=== PATIENT | female | born 1990 | race Caucasian/White ===

== ENCOUNTER 2017-07-24 19:33 | Inpatient (IN) | payer MEDICAID ==
[~2017-07-24] VITALS: Ht 157.5 cm; Wt 70.5 kg
[~2017-07-24 19:33] MED LIST: CEPH-443 PO; IBUP-1542 PO; PREN1TAB62 PO
[2017-07-24 19:54] VITALS: BP 130/80; PULSE 86; RESP 18; Ht 157.5 cm; Wt 70.5 kg
[2017-07-24] MEDS ORDERED: AMPICILLIN 2 GM/NS (PMX) 100 ML IV ONE (21:30)
[2017-07-24] MEDS ORDERED: IBUPROFEN 600 MG TAB PO PRN (21:30)
[2017-07-24] MEDS ORDERED: BUTORPHANOL 2 MG INJ IV PRN ×2 (21:30)
[2017-07-24] MEDS ORDERED: LACTATED RINGER'S 1,000 ML IV PRN (21:30)
[2017-07-24] MEDS ORDERED: OXYTOCIN 30 UNITS/LR 500 ML IV SCH (21:30)
[2017-07-24] MEDS ORDERED: CARBOPROST 250 MCG INJ IM PRN (21:30)
[2017-07-24] MEDS ORDERED: HYDROCODONE/APAP (5/325) TAB PO PRN (21:30)
[2017-07-24] MEDS ORDERED: MISOPROSTOL 200 MCG TAB PR PRN (21:30)
[2017-07-24] MEDS ORDERED: LIDOCAINE 1% (MPF) 30 ML INJ INJ PRN (21:30)
[2017-07-24] MEDS ORDERED: OXYTOCIN 30 UNITS/LR 500 ML IV PRN (21:30)
[2017-07-24] MEDS ORDERED: METHYLERGONOVINE 0.2 MG INJ IM PRN (21:30)
--- NOTE | 2017-07-24 21:30 | HP ---
Date/Time of Note Date/Time of Note DATE: 07/24/17 TIME: 21:24 OB - History Hx of Present Free Text/Dictation 26 y.o at 38w6d came in c/o UC'[id number] with intact membrane VE 2.5/50%?-3 B.p initial 133/80 137/86 GBS not known 'no record available admitted for expectanta management. Chief Complaint: uc's Estimated Due Date: Aug 03, 2017 : 2 Para: 1 Spontaneous : 0 Therapeutic : 0 Care: Other Ultrasounds: Other Obstetrical Complications: None Medical Complications: None Past Family/Social History * Past Medical, Surgical, Family and Obstetric Histories reviewed from chart. Blood Type: Unknown Rubella: unknown RPR/VDRL: Unknown GBS Status: Unknown HBsAG: Unknown OB Admission Exam Vital Signs Vital Signs Vital Signs Date Time Temp Pulse Resp B/P Pulse Ox O2 Delivery O2 Flow Rate FiO2 07/24/17 19:54 98.1 86 18 130/80 99 Room Air Physical Exam HEENT: WNL Heart: Rhythm Normal Lungs: Clear, Equal Abdomen: WNL Extremities: Normal Reflexes: Normal Cervical Dilatation: 2cm Effacement: 50% Station: -3 Membranes: Intact Amniotic Fluid: Unevaluable Heart Rate: 130's Accelerations: Accelerations Present Decelerations: No Decelerations Varibility: Moderate Contractions on Admission: < 5 Minutes Apart Intensity: Mild OB Assessment/Plan Other Assessment: IUP 38w6d Plan: Expectant Management GUERO TRUONG MD Jul 24, 2017 21:30
--- NOTE | 2017-07-24 22:32 | RADRPT ---
PROCEDURE: Obstetrical ultrasound, limited. CLINICAL INDICATION: Pelvic pain. TECHNIQUE: Multiple sonographic images of the pelvis were obtained using transabdominal technique . Images were obtained with pastrana scale and color Doppler. The images were reviewed on a PACS works tation. COMPARISON: No prior studies are available for comparison. FINDINGS: There is a single living intrauterine gestation with the fetus in a vertex presentation. hear t tones of 160 beats per minute are identified. The placenta is anterior in location, grade 2. The re is no evidence of placenta previa or abruption. Measurements were made in order to determine age. The results are as follows: BPD =9.39 cm HC =33.56 cm AC =34.53 cm FL =7.49 cm. Estimated gestational age of approximately 38 weeks and 3 days. The estimated date of delivery is 08/04/2017. The EFW = 3478 +/- 522 grams. Estimated weight percentage equals 64.4%. IMPRESSION: Single viable intrauterine gestation of approximately 38 weeks and 3 days, with an ultrasound ABDOULAYE of 08/04/2017. .Newton Licea MD, MD Date Time Electronically viewed and signed by .Newton Licea MD, MD on 07/24/2017 22:32 .T/
[2017-07-24] MEDS: LACTATED RINGER'S 1,000 ML IV SCH (22:42)
--- NOTE | 2017-07-24 23:39 | TRIAGE ---
OB Triage Datetime Report Generated by CPN: 07/24/2017 23:39 Datetime: 07/24/2017 23:05 Time of Arrival: 07/24/2017 22:15 EGA: 38.4 Arrived By: Ambulatory Datetime: 07/24/2017 22:45 Assessment Type: Admission Assessment Vaginal Bleeding: None Maternal Assessment Level of Consciousness: Fully Conscious DTR's/Clonus: DTRs 2+; No Clonus Headache: Denies Blurred Vision: No Respiratory Effort: Unlabored; Regular Rhythm; Equal Expansion Breath Sounds, Left: Clear and Equal Breath Sounds, Right: Clear and Equal Nausea/Vomiting: Denies RUQ Epigastric Pain: Denies Lower Extremities Edema: None Degree: None Upper Extremities Edema: None Degree: None Facial Edema: None Fall Risk Assessment History of Falling: (0) No Secondary Diagnosis: (0) No Ambulatory Aid: (0) Bedrest/Nurse Assist IV Therapy: (20) Yes Gait: (0) Normal/Bedrest/Immobile Mental Status: (0) Oriented to Own Ability Fall Score: 20 Fall Risk Score Definition: No Risk: No action required Labor Evaluation Frequency: 1-3.5 Duration (sec)2399: 50-120 Pattern: Normal: <= 5 Contractions in 10 Minutes Resting Tone [place]: Relaxed Heart Rate FHR Baseline Rate: 130 Variability: Moderate 6-25 bpm Accelerations: 15X15 Decelerations: Late Category: Category II Pain Assessment Pain Scale: 6 Pain Presence: Intermittent Pain Type: Contraction Pain Location: Abdomen; Back Pain Goal: 3 Datetime: 07/24/2017 22:30 Stage of : Labor Datetime: 07/24/2017 22:16 Stage of : OB Triage Datetime: 07/24/2017 22:11 Monitor Mode: External Monitor Mode: External US Datetime: 07/24/2017 22:02 Labor Evaluation Frequency: 2-5 Monitor Mode: External Duration (sec)2399: 40-100 Quality: Mild Resting Tone [place]: Relaxed Heart Rate FHR Baseline Rate: 140 Monitor Mode: External US Variability: Moderate 6-25 bpm Accelerations: 15X15 Decelerations: None Category: Category I Datetime: 07/24/2017 21:10 Stage of : OB Triage Datetime: 07/24/2017 21:06 Stage of : OB Triage Datetime: 07/24/2017 20:45 Stage of : OB Triage Labor Evaluation Frequency: irregular Monitor Mode: External Duration (sec)2399: 40-130 Quality: Mild Resting Tone [place]: Relaxed Heart Rate FHR Baseline Rate: 140 Monitor Mode: External US Variability: Moderate 6-25 bpm Accelerations: 15X15 Decelerations: None Category: Category I Datetime: 07/24/2017 20:40 Monitor Mode: External Datetime: 07/24/2017 20:30 Vaginal Exam Dilatation (cms): 2.5 Effacement (%): 50 Station: -3 Exam By: Art DEJESUS Vaginal Bleeding: None Cervix, Consistency: Firm Cervix, Position: Posterior Presentation 'A': Cephalic Datetime: 07/24/2017 20:06 Monitor Mode: External Monitor Mode: External US Datetime: 07/24/2017 20:03 Stage of : OB Triage Labor Evaluation Frequency: 2-5 Monitor Mode: External Duration (sec)2399: 40-100 Quality: Mild Resting Tone [place]: Relaxed Heart Rate FHR Baseline Rate: 130 Monitor Mode: External US Variability: Moderate 6-25 bpm Accelerations: 15X15 Decelerations: None Category: Category I Pain Assessment Pain Scale: 4 Pain Presence: Intermittent Pain Type: Contraction Pain Location: Abdomen Datetime: 07/24/2017 19:48 Assessment Type: Triage Maternal Assessment Level of Consciousness: Fully Conscious DTR's/Clonus: DTRs 2+; No Clonus Headache: Denies Blurred Vision: No Respiratory Effort: Unlabored Breath Sounds, Left: Clear and Equal Breath Sounds, Right: Clear and Equal Nausea/Vomiting: Denies RUQ Epigastric Pain: Denies Lower Extremities Edema: None Degree: None Upper Extremities Edema: None Degree: None Facial Edema: None Fall Risk Assessment History of Falling: (0) No Secondary Diagnosis: (0) No Ambulatory Aid: (0) Bedrest/Nurse Assist IV Therapy: (0) No Gait: (0) Normal/Bedrest/Immobile Mental Status: (0) Oriented to Own Ability Fall Score: 0 Fall Risk Score Definition: No Risk: No action required Datetime: 07/24/2017 19:42 Monitor Mode: External Contraction Comments: APPLIED Monitor Mode: External US Comments: APPLIED Datetime: 07/24/2017 19:38 Time of Arrival: 07/24/2017 19:22 EGA: 38.4 Arrived By: Wheelchair Arrived From: Home Chief Complaint: UCS Movement: Present Contractions: Regular Time Contractions Began: 07/24/2017 02:00 Contractions: q 10 min Rupture of Membranes: Denies Vaginal Bleeding: None Vaginal Discharge: Denies Recent Sexual Intercouse: Denies Abdominal Trauma: Not Applicable Patient Complaints: Contractions Initial Plan: VS, EFM, SVE Datetime: 07/24/2017 19:29 Stage of : OB Triage
[2017-07-25] MEDS ORDERED: AMPICILLIN 1 GM/NS (PMX) 50 ML IV SCH (01:30)
[2017-07-25] MEDS: LACTATED RINGER'S 1,000 ML IV SCH (07:58)
[2017-07-25] MEDS ORDERED: MINERAL OIL LIGHT 10 ML VIAL TOP ONE (11:00)
--- NOTE | 2017-07-25 11:09 | LDN ---
Date/Time of Note Date/Time of Note DATE: 07/25/17 TIME: 11:08 Delivery Summary Normal spontaneous vaginal delivery of a viable over intact perineum Weeks of Gestation 38+ Placenta Delivered: Spontaneously, Intact & Complete Meconium: none Episiotomy: No Perineal laceration: 0 Anesthesia type: None Estimated blood loss: 300 Sponge & Needle done & correct: Yes All needle counts correct: Yes Any foreign bodies felt in the: No Problems: Infant Delivery Information Sex Sex: male Apgars 1 Minute: 9 5 Minute: 9 Suctioning Nose & mouth suctioned at [place]: Yes Delee suction performed: No Umbilical Cord Umbilical cord with: 3 Vessels Cord presentations: no nuchal cord Cord Blood was obtained: Yes Mother & Baby Disposition Disposition Mom & Baby to Maternity; Good: Yes (Mother and baby were recovered in good condition) Mom transferred to: Other (Maternity) Baby to NICU: No JOAN ALVARADO MD Jul 25, 2017 11:09
[2017-07-25] MEDS: OXYTOCIN 30 UNITS/LR 500 ML IV SCH ×2 (11:11→11:12)
[2017-07-25] MEDS ORDERED: HYDROCODONE/APAP (5/325) TAB PO PRN ×2 (19:30→23:30)
[2017-07-25] MEDS: LACTATED RINGER'S 1,000 ML IV* SCH (23:13)
[2017-07-25] MEDS ORDERED: LANOLIN 7 GM TUBE TOP PRN (23:30)
[2017-07-25] MEDS ORDERED: OXYTOCIN 30 UNITS/LR 500 ML IV PRN (23:30)
[2017-07-25] MEDS ORDERED: CARBOPROST 250 MCG INJ IM PRN (23:30)
[2017-07-25] MEDS ORDERED: MISOPROSTOL 200 MCG TAB PR PRN (23:30)
[2017-07-25] MEDS ORDERED: ZOLPIDEM 5 MG TAB PO PRN (23:30)
[2017-07-25] MEDS ORDERED: WITCH HAZEL/GLYCERIN PAD PR PRN (23:30)
[2017-07-25] MEDS ORDERED: METHYLERGONOVINE 0.2 MG INJ IM PRN (23:30)
[2017-07-25] MEDS ORDERED: BENZOCAINE 20% 56 ML SPRAY TOP PRN (23:30)
[2017-07-25] MEDS ORDERED: DIBUCAINE 1% 30 GM OINT PR PRN (23:30)
[2017-07-26] MEDS ORDERED: IBUPROFEN 600 MG TAB PO SCH
[2017-07-26 00:15] VITALS: BP 120/65; PULSE 98; RESP 18
[2017-07-26 04:35] VITALS: BP 114/54; PULSE 84; RESP 18
[2017-07-26] MEDS: IBUPROFEN 600 MG TAB PO SCH ×5 (06:00→23:30)
[2017-07-26] MEDS: LACTATED RINGER'S 1,000 ML IV* SCH ×2 (07:13→15:13)
[2017-07-26 08:00] VITALS: BP 110/61; PULSE 79; RESP 17
[2017-07-26] MEDS: MAGNESIUM HYDROXIDE 30ML CUP PO SCH ×2 (09:18→20:42)
[2017-07-26] MEDS: SENNA/DOCUSATE NA (8.6MG/50MG) TAB PO SCH ×2 (09:18→20:42)
--- NOTE | 2017-07-26 15:50 | DS ---
Date/Time of Note Date/Time of Note DATE: 07/26/17 TIME: 15:50 Obstetrical Discharge Record Final Diagnosis Final Diagnosis: Term delivered Other Final Diagnosis Status post vaginal delivery Vaginal Delivery Obstetrical Delivery: Spontaneous Condition on Discharge Physical Assessment Last Vitals: See nurse's notes Voiding: Yes Bowel Movement: Yes Breast: Soft, non-tender, Filling Fundus: Firm Abdomen and Incision: Abdomen is soft nontender This is firm bellybutton Episiotomy: Not applicable Calf Tenderness: No Patient Condition: Good JOAN ALVARADO MD Jul 26, 2017 15:50
--- NOTE | 2017-07-26 15:51 | PD.PPDC ---
[employer] Discharge Instruction Provider Information Physician Information 26-year-old female had vaginal delivery Diagnosis Final Diagnosis: Status post vaginal delivery Condition Patient Condition: Good Diet Diet: Resume Regular Diet Activity/Restrictions Activity: Normal Activity May Shower Restrictions: Nothing in the Vagina Return to Work or School: Sep 12, 2017 Follow-up Follow-up with Physician: 4, Week/Weeks (In clinic) Return to clinic for OB Instructions: Breast Tenderness Depression Comment: Pelvic rest 6 weeks JOAN ALVARADO MD Jul 26, 2017 15:51
[2017-07-26] MEDS ORDERED: IBUP-1542 PO (15:52)
[2017-07-26 16:30] VITALS: BP 121/67; PULSE 80; RESP 17
[2017-07-26 20:00] VITALS: BP 130/96; PULSE 72; RESP 18
[2017-07-26] MEDS ORDERED: INFLUENZA VIRUS VACCINE 0.5 ML (DISPENSING) IM* ONE (22:00)
[2017-07-27 04:00] VITALS: BP 126/80; PULSE 80; RESP 18
[2017-07-27] MEDS: IBUPROFEN 600 MG TAB PO SCH ×2 (05:33→12:04)
[2017-07-27 08:00] VITALS: BP_SYST 105; BP_SYST 119; BP_DIAS 58; BP_DIAS 63; PULSE 69; PULSE 86; RESP 18
[2017-07-27] MEDS ORDERED: MEASLES,MUMPS,RUBELLA VACCINE INJ SC* ONE (09:00)
[2017-07-27] MEDS ORDERED: DIPHTH/TET/ACEL PERTUSS (ADULT) 0.5 ML VIAL IM* ONE (09:00)
[2017-07-27] MEDS ORDERED: VARICELLA VACCINE LIVE/PF 1,350 UNIT/0.5 ML ML SC* ONE (09:00)
[2017-07-27] MEDS ORDERED: INFLUENZA VIRUS VACCINE 0.5 ML (DISPENSING) IM* ONE (09:00)
[2017-07-27] MEDS: MAGNESIUM HYDROXIDE 30ML CUP PO SCH (09:01)
[2017-07-27] MEDS: SENNA/DOCUSATE NA (8.6MG/50MG) TAB PO SCH (09:02)
== END 2017-07-27 15:32 | disposition home or self-care (01) | DRG 775 ==
LOC: OBT 19:33 → L-D 19:35 → OBT 21:10 → L-D 21:10 → PP1 07-25 15:35
PROVIDERS: ADMIT Obstetrics & Gynecology; ATTEND Obstetrics & Gynecology
PROC: 10E0XZZ Delivery of Products of Conception, External Approach (ICD-10-PCS; principal; 2017-07-25)
PROC: 3E0P3VZ Introduction of Hormone into Female Reproductive, Percutaneous Approach (ICD-10-PCS; 2017-07-25)
DX: O80 Encounter for full-term uncomplicated delivery (principal); Z37.0 Single live birth; Z3A.38 38 weeks gestation of pregnancy
CPT/HCPCS: 76815; 80053; 81003; 84560; 85025; 85610; 85730; 86592; 86900; 86901; 87340; 90686; 90715; 90716; G0463; J0595; J2590; J7120

== ENCOUNTER 2018-11-04 18:40 | Emergency (ER) | payer MEDICAID ==
[~2018-11-04] VITALS: Ht 165.1 cm; Wt 62.3 kg
[~2018-11-04 18:40] MED LIST changes: -CEPH-443 PO
[2018-11-04 18:43] VITALS: Ht 165.1 cm; Wt 62.3 kg
[2018-11-04] MEDS ORDERED: CEPH-443 PO (22:31)
[2018-11-04 22:41] VITALS: BP 148/83; PULSE 99; RESP 18
--- NOTE | 2018-11-05 15:51 | ERD ---
ER Documentation Chief Complaint Chief Complaint PT reports she is having discharge from implant in L arm x 4 days HPI Patient is a Tongan speaking 27 year old with no significant past medical history who presents to the ED with complaints of increasing pain, redness and discharge from her Nexplanon site 4 days ago. Patient states she had the Nexplanon placed on her left upper arm approximately 13 months ago and has been having recurrent pain and redness since. She went to her clinic a few months for this issue where they told her "it was normal" and prescribed her a topical ointment to use. She presents today after noticing increasing pain, redness and discharge from her implant site. Denies any associated fevers or chills. No numbness, tingling or focal weakness of her upper extremity. No relief with the topical ointment was originally given to her. No other complaints. No drug abuse, alcohol or nicotine use. ROS All systems reviewed and are negative except as per history of present illness. Medications Home Meds Active Scripts Cephalexin* (Keflex*) 500 Mg Capsule, 500 MG PO QID for 5 Days, CAP Prov:RISA BOLDEN PA-C 11/04/18 Ibuprofen* (Ibuprofen*) 600 Mg Tablet, 600 MG PO Q6, #30 TAB 0 Refills Prov:JOAN ALVARADO MD 07/26/17 Reported Medications Vit-Iron Fumarate-FA ( Vitamin Tablet) 1 Each Tablet, 1 TAB PO DAILY, TAB 06/06/15 Allergies Allergies: Coded Allergies: No Known Allergy (Unverified , 07/24/17) PMhx/Soc Medical and Surgical Hx: pt denies Medical Hx, pt denies Surgical Hx History of Surgery: No Anesthesia Reaction: No Hx Neurological Disorder: No Hx Respiratory Disorders: No Hx Cardiac Disorders: No Hx Psychiatric Problems: No Hx Miscellaneous Medical Probl: No Hx Alcohol Use: Yes (Formerly) Hx Substance Use: No Hx Tobacco Use: No Smoking Status: Never smoker Physical Exam Vitals Vital Signs Date Temp Pulse Resp B/P (MAP) Pulse Ox O2 O2 Flow FiO2 Time Delivery Rate 11/04/18 98.7 99 18 148/83 99 Room Air 22:41 (104) 11/04/18 99.2 95 16 150/86 99 18:43 (107) Physical Exam Const: No acute distress Head: Atraumatic Eyes: Normal Conjunctiva ENT: Normal External Ears, Nose and Mouth. Back: No midline or flank tenderness Ext: + Palpable 4 cm subdermal implant on left upper arm. Small open wound at insertion site TTP with surrounding erythema. No warmth. No fluctuance or induration. No active drainage. Neur: Awake and alert Psych: Normal Mood and Affect Procedures/MDM Nursing Notes Reviewed. Previous Medical Records requested via the Electronic Health Record. EMERGENCY DEPARTMENT COURSE / MEDICAL DECISION MAKING: Patient is a 27 year old female with no significant past medical history who presents with redness and pain along her Nexplanon insertion site. Physical exam findings are most consistent with cellulitis without a drainable abscess. HR mildly elevated however remaining vital signs stable therefore low suspicion for sepsis or SIRS. No e/o deep space infection, necrotizing fasciitis or other emergent process. Patient is stable for outpatient follow up with her clinic in 2 days for removal of her Nexplanon device. She was discharged with a prescription for Keflex. Also recommend Motrin or Tylenol for pain. She was told to follow up with her OBGYN clinic as discussed, otherwise return to the ED for any new or worsening symptoms. DISPOSITION PLAN We discussed follow up with the patient's primary care doctor within 24 to 48 hours. A list of community clinics have been referred to those who have not yet established care with a PCP. Patient counseled regarding my diagnostic impression and care plan. Prior to discharge all questions answered. Pt agrees with treatment plan and understands strict return precautions. Precautionary instructions provided including instructions to return to the ER if not improving or for any worsening or changing symptoms or concerns. Prior to discharge, patients vital signs have been reviewed Patient's blood pressure was elevated (>120/80) but appears stable without evidence of hypertension emergency or urgency. The patient was counseled about the risks of hypertension and urged to pursue outpatient monitoring and therapy within a week with their primary care physician SPECIALIST FOLLOW UP RECOMMENDED: FITNESS ASSISTANT Patient has been advised to follow up with primary care in 1-2 days. Departure Diagnosis: Primary Impression: Cellulitis of left upper arm Additional Impression: Implanon in place Condition: Stable Patient Instructions: Cellulitis Referrals: COMMUNITY CLINICS YOU HAVE RECEIVED A MEDICAL SCREENING EXAM AND THE RESULTS INDICATE THAT YOU DO NOT HAVE A CONDITION THAT REQUIRES URGENT TREATMENT IN THE EMERGENCY DEPARTMENT. FURTHER EVALUATION AND TREATMENT OF YOUR CONDITION CAN WAIT UNTIL YOU ARE SEEN IN YOUR DOCTORS OFFICE WITHIN THE NEXT 1-2 DAYS. IT IS YOUR RESPONSIBILITY TO MAKE AN APPOINTMENT FOR FOLOW-UP CARE. IF YOU HAVE A PRIMARY DOCTOR --you should call your primary doctor and schedule an appointment IF YOU DO NOT HAVE A PRIMARY DOCTOR YOU CAN CALL OUR PHYSICIAN REFERRAL HOTLINE AT IF YOU CAN NOT AFFORD TO SEE A PHYSICIAN YOU CAN CHOSE FROM THE FOLLOWING [facility] [address] [facility] [address] [facility] [facility] [address] [facility] [address] [facility] [facility] [facility] [address] [facility]. [address] Additional Instructions: Return to the clinic that placed your Nexplanon in your arm. This is causing an infection and needs to be removed. I have given you a prescription for Keflex which he should take the entire course of. Return to the ED if you notice any increasing pain, discharge, fevers, chills. RISA BOLDEN PA-C Nov 05, 2018 15:45
== END 2018-11-04 22:41 | disposition home or self-care (01) ==
LOC: E/R 18:40
DX: L03.114 Cellulitis of left upper limb (principal); S41.102A Unspecified open wound of left upper arm, initial encounter; X58.XXXA Exposure to other specified factors, initial encounter; Z97.5 Presence of (intrauterine) contraceptive device
CPT/HCPCS: 99283